=== PATIENT | female | born 1980 | race American Indian/Alaskan Native ===

== ENCOUNTER 2016-07-18 01:33 | Inpatient (IN) | payer MEDICAID ==
[2016-07-18 01:56] VITALS: BMI 40.4
--- NOTE | 2016-07-18 02:14 | ED PDOC ---
Arrival/HPI - General Chief Complaint: GI Problem Time Seen by Provider: 07/18/16 02:09 Historian: Patient - History of Present Illness Narrative History of Present Illness (Text): 07/18/16 02:14 Micky Forbes is a 36 year old female, whose past medical history includes gastritis, who presents to the Emergency department complaining of diffuse abdominal pain since 21:00. Patient reports associated nausea. Patient denies any fever, chills, chest pain, shortness of breath, vomiting, diarrhea, urinary symptoms, back pain, neck pain, headache, dizziness, or any other complaints. Time/Duration: 1-3 hours (21:00) Symptom Onset: Gradual Symptom Course: Unchanged Activities at Onset: Rest, Light Context: Home Past Medical History - Provider Review Nursing Documentation Reviewed: Yes - Infectious Disease Hx of Infectious Diseases: None - Tetanus Immunization Tetanus Immunization: Unknown - Psychiatric Hx Substance Use: No - Past Surgical History Past Surgical History: No Previous - Anesthesia Hx Anesthesia: No - Suicidal Assessment Feels Threatened In Home Enviroment: No Family/Social History - Physician Review Nursing Documentation Reviewed: Yes Family/Social History: No Known Family HX Smoking Status: Never Smoked Hx Alcohol Use: No Hx Substance Use: No Hx Substance Use Treatment: No Allergies/Home Meds Allergies/Adverse Reactions: Allergies Penicillins Allergy (Verified 07/18/16 01:56) RASH Review of Systems - Physician Review All systems were reviewed & negative as marked: Yes - Review of Systems Constitutional: Normal. absent: Fevers Eyes: Normal ENT: Normal Respiratory: Normal. absent: SOB, Cough Cardiovascular: Normal. absent: Chest Pain Gastrointestinal: Abdominal Pain, Nausea. absent: Diarrhea, Vomiting Genitourinary Female: Normal. absent: Dysuria, Frequency, Hematuria, Urine Output Changes Musculoskeletal: Normal. absent: Back Pain, Neck Pain Skin: Normal. absent: Rash Neurological: Normal. absent: Headache, Dizziness Endocrine: Normal Hemo/Lymphatic: Normal Psychiatric: Normal Physical Exam Vital Signs Reviewed: Yes Vital Signs Temp Pulse Resp BP Pulse Ox 07/18/16 04:52 83 18 109/68 97 07/18/16 01:59 98.1 F 90 18 128/86 97 Temperature: Afebrile Blood Pressure: Normal Pulse: Regular Respiratory Rate: Normal Appearance: Positive for: Well-Appearing, Non-Toxic, Comfortable Pain Distress: None Mental Status: Positive for: Alert and Oriented X 3 - Systems Exam Head: Present: Atraumatic, Normocephalic Pupils: Present: PERRL Extroacular Muscles: Present: EOMI Conjunctiva: Present: Normal Mouth: Present: Moist Mucous Membranes Neck: Present: Normal Range of Motion Respiratory/Chest: Present: Clear to Auscultation, Good Air Exchange. No: Respiratory Distress, Accessory Muscle Use Cardiovascular: Present: Regular Rate and Rhythm, Normal S1, S2. No: Murmurs Abdomen: Present: Normal Bowel Sounds. No: Tenderness, Distention, Peritoneal Signs Back: Present: Normal Inspection Upper Extremity: Present: Normal Inspection. No: Cyanosis, Edema Lower Extremity: Present: Normal Inspection. No: Edema Neurological: Present: GCS=15, CN II-XII Intact, Speech Normal Skin: Present: Warm, Dry, Normal Color. No: Rashes Psychiatric: Present: Alert, Oriented x 3, Normal Insight, Normal Concentration Medical Decision Making ED Course and Treatment: 07/18/16 02:14 Impression: 36 year old female complaining of abdominal pain and nausea since 21:00. Plan: -- Labs, lipase -- Urinalysis -- IV fluids -- Zofran -- Protonix -- Toradol -- IV fluids -- Reassess and disposition Progress Notes: 07/18/16 03:43 Reviewed labs, WBC: 19.3. Will order CT Abdomen and Pelvis. 07/18/16 05:44 Reviewed radiology, CT Abdomen and Pelvis shows: 1. Acute appendicitis. 2. Incidental/non-acute findings are described above. Cipro and Flagyl ordered. Paged surgeon and director medical surgical credit and collections analyst. 07/18/16 05:48 Case discussed with director medical surgical credit and collections analyst, who is aware and agrees with plan. 07/18/16 05:[address] Yudelka Sweeney, surgeon, who is aware and agrees with plan. Accepts pt in to her service. Pt will be [facility] for appendicitis. Pt is no acute distress. Discussed results and hospital admission with pt, who is aware and verbalizes understanding. - Lab Interpretations Lab Results: 07/18/16 03:00 07/18/16 03:42 Lab Results 07/18/16 03:45: Urine Color Yellow, Urine Appearance Clear, Urine pH 8.0, Ur Specific [place] 1.010, Urine Protein Negative, Urine Glucose (UA) Negative, Urine Ketones Negative, Urine Blood Negative, Urine Nitrate Negative, Urine Bilirubin Negative, Urine Urobilinogen 0.2, Ur Leukocyte Esterase Negative, Urine HCG, Qual Negative 07/18/16 03:42: Sodium 137, Potassium 3.8, Chloride 104, Carbon Dioxide 24, Anion Gap 13, BUN 8, Creatinine 0.5, Est GFR ( Amer) > 60, Est GFR (Non- Af Amer) > 60, Random Glucose 119 H, Calcium 8.9, Total Bilirubin 0.5, AST 19, ALT 24, Alkaline Phosphatase 73, Total Protein 7.7, Albumin 3.9, Globulin 3.8, Albumin/Globulin Ratio 1.0 L, Lipase 49 07/18/16 03:00: WBC 19.3 H, RBC 4.65, Hgb 11.9 L, Hct 36.8, MCV 79.1 L, MCH 25.6 , MCHC 32.3, RDW 15.6 H, Plt Count 370, MPV 10.5, Gran % 85.2 H, Lymph % (Auto) 11.0 L, [place] % (Auto) 3.5, Eos % (Auto) 0.2 L, Baso % (Auto) 0.1, Gran # 16.42 H , Lymph # 2.1, [place] # 0.7 H, Eos # 0.0, Baso # 0.02 I have reviewed the lab results: Yes - RAD Interpretation Narrative RAD Interpretations (Text): CT Abdomen and Pelvis shows: Limitations: Lack of intravenous contrast. Lower thorax: Minimal atelectasis. ABDOMEN: Liver: Unremarkable. Gallbladder and bile ducts: No calcified stones. No ductal dilation. Pancreas: Unremarkable. No ductal dilation. Spleen: No splenomegaly. Adrenals: No mass. Kidneys and ureters: No renal calculi. No hydronephrosis. Stomach and bowel: Underdistention of LEFT colon. No definite mural thickening. No obstruction. Appendix: Enlarged appendix, measuring up to 1.1 cm in diameter. Minimal stranding about appendix. PELVIS: Bladder: Unremarkable. No stones. Reproductive: Unremarkable as visualized. ABDOMEN and PELVIS: Intraperitoneal space: Trace free fluid within pelvis. No free air. Bones/joints: No acute fracture. Soft tissues: Tiny umbilical hernia containing fat. Vasculature: Unremarkable. No abdominal aortic aneurysm. Lymph nodes: Few subcentimeter short axis mesenteric lymph nodes, nonspecific. IMPRESSION: 1. Acute appendicitis. 2. Incidental/non-acute findings are described above. Radiology Orders: 07/18/16 03:45 ABD & PELVIS W/O PO OR IV CONT [CT] Stat Registrar Assistant: Radiologist - Medication Orders Current Medication Orders: Discontinued Medications Bupivacaine HCl (Marcaine 0.5%) Confirm Administered Dose 30 ml .ROUTE .STK-MED ONE Stop: 07/18/16 15:33 Fentanyl (Fentanyl) Confirm Administered Dose 100 mcg .ROUTE .STK-MED ONE Stop: 07/18/16 19:37 Glycopyrrolate (Robinul) Confirm Administered Dose 0.2 mg .ROUTE .STK-MED ONE Stop: 07/18/16 19:38 Glycopyrrolate (Robinul) Confirm Administered Dose 0.4 mg .ROUTE .STK-MED ONE Stop: 07/18/16 19:38 Home Med (*Refrigerator Open) Confirm Administered Dose 1 unit XX .STK-MED ONE Stop: 07/18/16 15:33 Sodium Chloride (Sodium Chloride 0.9%) 1,000 mls @ 100 mls/hr IV .Q10H STA Stop: 07/18/16 12:19 Last Admin: 07/18/16 03:07 Dose: 100 mls/hr Ciprofloxacin (Cipro 400mg/200ml Dsw) 400 mg in 200 mls @ 133.3 mls/hr IVPB STAT STA PRN Reason: Protocol Stop: 07/18/16 07:18 Metronidazole (Flagyl) 500 mg in 100 mls @ 100 mls/hr IVPB STAT STA PRN Reason: Protocol Stop: 07/18/16 06:46 Last Admin: 07/18/16 06:32 Dose: 100 mls/hr Ciprofloxacin (Cipro 400mg/200ml Dsw) 400 mg in 200 mls @ 133.3 mls/hr IVPB Q12 AMEE PRN Reason: Protocol Stop: 07/18/16 11:31 Last Admin: 07/18/16 09:06 Dose: 133.3 mls/hr Metronidazole (Flagyl) 500 mg in 100 mls @ 100 mls/hr IVPB Q8 AMEE PRN Reason: Protocol Last Admin: 07/19/16 05:01 Dose: 100 mls/hr Lactated Ringer's (Lactated Ringer's) 1,000 mls @ 125 mls/hr IV .Q8H [facility] Last Admin: 07/18/16 22:55 Dose: 125 mls/hr Lactated Ringer's (Lactated Ringer's) 1,000 mls @ 75 mls/hr IV .[id number] [facility] Stop: 07/18/16 21:30 Last Admin: 07/18/16 23:34 Dose: Ketorolac Tromethamine (Toradol) 30 mg IVP ONCE ONE Stop: 07/18/16 02:23 Last Admin: 07/18/16 03:46 Dose: 30 mg Lidocaine (Lidocaine (Bolus)) Confirm Administered Dose 100 mg IV .STK-MED ONE Stop: 07/18/16 19:39 Metoclopramide HCl (Reglan) Confirm Administered Dose 10 mg .ROUTE .STK-MED ONE Stop: 07/18/16 19:39 Metoclopramide HCl (Reglan) 10 mg IV ONCE PRN PRN Reason: Nausea/Vomiting Midazolam HCl (Versed Inj) Confirm Administered Dose 2 mg .ROUTE .STK-MED ONE Stop: 07/18/16 19:38 Morphine Sulfate (Morphine) 4 mg IVP Q4H PRN PRN Reason: Pain, moderate (4-7) Last Admin: 07/19/16 08:58 Dose: 4 mg Morphine Sulfate (Morphine) 2 mg IVP Q15M PRN PRN Reason: Pain, moderate (4-7) Stop: 07/18/16 22:00 Morphine Sulfate (Morphine) Confirm Administered Dose 2 mg .ROUTE .STK-MED ONE Stop: 07/18/16 21:55 Morphine Sulfate (Morphine) Confirm Administered Dose 2 mg .ROUTE .STK-MED ONE Stop: 07/18/16 22:03 Morphine Sulfate (Morphine) 2 mg IVP .STK-MED ONE Stop: 07/18/16 21:46 Last Admin: 07/18/16 21:45 Dose: 2 mg Re-Assess: MARICARMEN Pain Assessment Document 07/18/16 22:45 (Rec: 07/18/16 23:34 [id number]) Pain Reassessment Is this a pain reassessment? Yes Presence of Pain Presence of Pain Yes Morphine Sulfate (Morphine) 2 mg IVP .STK-MED ONE Stop: 07/18/16 22:01 Last Admin: 07/18/16 22:00 Dose: 2 mg Re-Assess: BANNER Pain Assessment Document 07/18/16 23:00 (Rec: 07/18/16 23:32 [id number]) Pain Reassessment Is this a pain reassessment? Yes Sleep Is patient sleeping during reassessment? No Presence of Pain Presence of Pain Yes Morphine Sulfate (Morphine) Confirm Administered Dose 2 mg .ROUTE .STK-MED ONE Stop: 07/18/16 22:24 Morphine Sulfate (Morphine) 2 mg IVP .STK-MED ONE Stop: 07/18/16 22:16 Last Admin: 07/18/16 22:15 Dose: 2 mg Re-Assess: BANNER Pain Assessment Document 07/18/16 23:15 (Rec: 07/18/16 23:32 [id number]) Pain Reassessment Is this a pain reassessment? Yes Presence of Pain Presence of Pain No Morphine Sulfate (Morphine) Confirm Administered Dose 2 mg .ROUTE .STK-MED ONE Stop: 07/18/16 22:38 Morphine Sulfate (Morphine) 2 mg IVP .STK-MED ONE Stop: 07/18/16 22:46 Last Admin: 07/18/16 22:45 Dose: 2 mg Re-Assess: BANNER Pain Assessment Document 07/18/16 23:45 (Rec: 07/19/16 02:52 [id number]) Pain Reassessment Is this a pain reassessment? Yes Sleep Is patient sleeping during reassessment? No Presence of Pain Presence of Pain Yes Neostigmine Methylsulfate (Neostigmine Methylsulfate) Confirm Administered Dose 6 mg IV .STK-MED ONE Stop: 07/18/16 19:39 Ondansetron HCl (Zofran Inj) 4 mg IVP STAT STA Stop: 07/18/16 02:21 Last Admin: 07/18/16 03:47 Dose: 4 mg Ondansetron HCl (Zofran Inj) Confirm Administered Dose 8 mg .ROUTE .STK-MED ONE Stop: 07/18/16 19:39 Ondansetron HCl (Zofran Inj) 4 mg IVP ONCE PRN PRN Reason: Nausea/Vomiting Stop: 07/18/16 23:59 Oxycodone/Acetaminophen (Percocet 5/325 Mg Tab) 1 tab PO Q4H PRN PRN Reason: Pain, Mild (1-3) Stop: 07/21/16 21:29 Last Admin: 07/19/16 01:48 Dose: 1 tab Re-Assess: MARICARMEN Pain Assessment Document 07/19/16 02:48 FC (Rec: 07/19/16 02:52 FC [id number]) Pain Reassessment Is this a pain reassessment? Yes Presence of Pain Presence of Pain No Pantoprazole Sodium (Protonix Inj) 40 mg IVP STAT STA Stop: 07/18/16 02:21 Last Admin: 07/18/16 03:47 Dose: 40 mg Propofol (Diprivan) Confirm Administered Dose 400 mg .ROUTE .STK-MED ONE Stop: 07/18/16 19:36 Rocuronium [place] (Zemuron) Confirm Administered Dose 50 mg .ROUTE .STK-MED ONE Stop: 07/18/16 19:41 Succinylcholine Chloride (Quelicin) Confirm Administered Dose 200 mg IV .STK- MED ONE Stop: 07/18/16 19:41 - Scribe Statement The provider has reviewed the documentation as recorded by the Scribtenzin Schulz All medical record entries made by the Scribtenzin were at my direction and personally dictated by me. I have reviewed the chart and agree that the record accurately reflects my personal performance of the history, physical exam, medical decision making, and the department course for this patient. I have also personally directed, reviewed, and agree with the discharge instructions and disposition. Disposition/Present on Arrival - Present on Arrival Any Indicators Present on Arrival: No History of DVT/PE: No History of Uncontrolled Diabetes: No Urinary Catheter: No History of Decub. Ulcer: No History Surgical Site Infection Following: None - Disposition Have Diagnosis and Disposition been Completed?: Yes Diagnosis: Appendicitis Disposition: HOSPITALIZED Disposition Time: 05:50 Condition: GOOD
[2016-07-18] MEDS ORDERED: Sodium Chloride 0.9% 1,000 ML IV STA (02:20)
[2016-07-18 03:08] LABS: ADD MANUAL DIFF? NO
[2016-07-18 03:10] LABS: BASO # 0.02 K/mm3 (0.0-2.0); BASO % 0.1 % (0.0-3.0); EOS % 0.2 % (1.5-5.0); GRAN # 16.42 (1.4-6.5); GRAN % 85.2 % (50.0-68.0); HEMATOCRIT 36.8 % (36.0-48.0); LYMPH # 2.1 (1.2-3.4); MEAN CELL VOLUME 79.1 fL (80.0-105.0); MEAN CORPUSCULAR HEMOGLOBIN 25.6 pg (25.0-35.0); MEAN CORPUSCULAR HGB CONC 32.3 g/dl (31.0-37.0); MEAN PLATELET VOLUME 10.5 fl (7.0-11.0); MONO # 0.7 (0.1-0.6); MONO % 3.5 % (1.0-6.0); PLATELET COUNT 370 10^3/uL (120.0-450.0); RED CELL DISTRIBUTION WIDTH 15.6 % (11.5-14.5); WHITE BLOOD COUNT 19.3 10^3/ul (4.5-11.0)
[2016-07-18 04:00] LABS: ALKALINE PHOSPHATASE 73 U/L (38-133); ALT/SGPT 24 U/L (7-56); AST/SGOT 19 U/L (15-39); BILIRUBIN,TOTAL 0.5 mg/dL (0.2-1.3); BLOOD UREA NITROGEN 8 mg/dL (7-21); CALCIUM 8.9 mg/dL (8.4-10.5); CARBON DIOXIDE 24 mmol/L (21-33); CHLORIDE 104 mmol/L (98-107); GFR AFRICAN-AMERICAN > 60; GLUCOSE,RANDOM 119 mg/dL (70-110); LIPASE 49 U/L (23-300); POTASSIUM 3.8 mmol/L (3.6-5.0); SODIUM 137 mmol/L (132-148); TOTAL PROTEIN 7.7 g/dL (5.8-8.3)
[2016-07-18 04:04] LABS: URINE BILIRUBIN NEGATIVE (NEGATIVE); URINE BLOOD NEGATIVE (NEGATIVE); URINE GLUCOSE (UA) NEGATIVE (NEGATIVE); URINE KETONE NEGATIVE (NEGATIVE); URINE LEUKOCYTE ESTERASE NEGATIVE Leu/uL (NEGATIVE); URINE PROTEIN NEGATIVE mg/dL (<30 mg/dL); URINE UROBILINOGEN 0.2 E.U./dL (<1 E.U./dL)
[2016-07-18 04:05] LABS: URINE APPEARANCE CLEAR (CLEAR); URINE COLOR YELLOW (YELLOW)
--- NOTE | 2016-07-18 05:41 | CT ---
EXAM: CT Abdomen and Pelvis Without Intravenous Contrast CLINICAL HISTORY: 36 years old, female; Pain; Abdominal pain; Generalized; Additional info: Abd pain TECHNIQUE: Axial computed tomography images of the abdomen and pelvis without intravenous contrast. This CT exam was performed using one or more of the following dose reduction techniques: automated exposure control, adjustment of the mA and/or kV according to patient size, and/or use of iterative reconstruction technique. Coronal and sagittal reformatted images were created and reviewed. COMPARISON: No relevant prior studies available. FINDINGS: Limitations: Lack of intravenous contrast. Lower thorax: Minimal atelectasis. ABDOMEN: Liver: Unremarkable. Gallbladder and bile ducts: No calcified stones. No ductal dilation. Pancreas: Unremarkable. No ductal dilation. Spleen: No splenomegaly. Adrenals: No mass. Kidneys and ureters: No renal calculi. No hydronephrosis. Stomach and bowel: Underdistention of LEFT colon. No definite mural thickening. No obstruction. Appendix: Enlarged appendix, measuring up to 1.1 cm in diameter. Minimal stranding about appendix. PELVIS: Bladder: Unremarkable. No stones. Reproductive: Unremarkable as visualized. ABDOMEN and PELVIS: Intraperitoneal space: Trace free fluid within pelvis. No free air. Bones/joints: No acute fracture. Soft tissues: Tiny umbilical hernia containing fat. Vasculature: Unremarkable. No abdominal aortic aneurysm. Lymph nodes: Few subcentimeter short axis mesenteric lymph nodes, nonspecific. IMPRESSION: 1. Acute appendicitis. 2. Incidental/non-acute findings are described above.
[2016-07-18] MEDS ORDERED: metroNIDAZOLE IV 500 mg/100 ml 500 MG/100 ML BAG IVPB STA (05:47)
[2016-07-18] MEDS ORDERED: Ciprofloxacin 400mg/200ml D5W 400 MG/200 ML BAG IVPB STA (05:48)
[2016-07-18] MEDS: Lactated Ringer's 1,000 ML IV SCH ×3 (08:49→22:55)
--- NOTE | 2016-07-18 09:08 | CP.PCM.HP ---
History of Present Illness - History of Present Illness History of Present Illness: cc: abdominal pain HPI: Patient is a 36yo female with no significant past medical history that presented c/o diffuse abdominal pain associated with nausea for the past several hours. Patient reported that she had similar episodes in the past that she reports was due to gastritis, however she admits never being evaluated by a grizzlyman. Patient states that the pain came on suddenly without any inciting events and that nothing appeared to make it better or worse. She reported that the pain was severe, sharp and did not localize to any particular region in her abdomen. In the ED, patient reported that her abdominal pain improved post pain medication administration as well as feeling hungry and willing to eat. She admitted to nausea, however denied fever, chills, vomiting, hematochezia, melena, hematemesis, chest pain, palpitations, SOB. 12 point ROS as per HPI above, otherwise negative PMHx: gastritis PSHx: denies Allergies: Penicillin Family Hx: Mother: choriocarcinoma over 30 yrs ago treated with chemotherapy Social Hx: Denies tobacco and tobacco use; social alcohol use Present on Admission - Present on Admission Any Indicators Present on Admission: No Past Patient History - Infectious Disease Hx of Infectious Diseases: None - Tetanus Immunizations Tetanus Immunization: Unknown - Past Social History Smoking Status: Never Smoked - PSYCHIATRIC Hx Substance Use: No - ANESTHESIA Hx Anesthesia: No Meds Allergies/Adverse Reactions: Allergies Allergy/AdvReac Type Severity Reaction Status Date / Time Penicillins Allergy RASH Verified 07/18/16 01:56 Physical Exam - Constitutional Appears: Well, Non-toxic, No Acute Distress - Head Exam Head Exam: ATRAUMATIC, NORMAL INSPECTION, NORMOCEPHALIC - Eye Exam Eye Exam: EOMI, PERRL - ENT Exam ENT Exam: Mucous Membranes Moist - Neck Exam Neck exam: Positive for: Normal Inspection - Respiratory Exam Respiratory Exam: Clear to Auscultation Bilateral. absent: Rales, Rhonchi, Wheezes - Cardiovascular Exam Cardiovascular Exam: RRR, +S1, +S2. absent: Diastolic murmur, Gallop, JVD, Rubs , Systolic Murmur - GI/Abdominal Exam GI & Abdominal Exam: Distended, Soft, Tenderness (mild RLQ tenderness). absent : Firm, Guarding, Rebound, Rigid - Extremities Exam Extremities exam: Positive for: normal inspection. Negative for: pedal edema - Neurological Exam Neurological exam: Alert, Oriented x3 - Psychiatric Exam Psychiatric exam: Normal Affect, Normal Mood - Skin Skin Exam: Dry, Intact, Normal Color, Warm Results - Vital Signs Recent Vital Signs: Last Vital Signs Temp 98.1 F 07/18/16 01:59 Pulse 83 07/18/16 04:52 Resp 18 07/18/16 04:52 BP 109/68 07/18/16 04:52 Pulse Ox 97 07/18/16 04:52 - Labs Result Diagrams: 07/18/16 03:00 07/18/16 03:42 Assessment & Plan - Assessment and Plan (Free Text) Plan: 1. Acute appendicitis -afebrile, however leukocytosis of 19.3 -CT abd/pelvis revealed acute appendicitis -IVF hydration -Continue abx -Pt scheduled for appendectomy Case discussed with attending, Dr. Sweeney - Date & Time Date: 07/18/16 Time: 09:09
[2016-07-18] MEDS ORDERED: Ciprofloxacin 400mg/200ml D5W 400 MG/200 ML BAG IVPB SCH (10:00)
[2016-07-18] MEDS: metroNIDAZOLE IV 500 mg/100 ml 500 MG/100 ML BAG IVPB SCH ×2 (14:25→22:55)
[2016-07-18] MEDS ORDERED: Bupivacaine 0.5% Inj(30mL) ONE (15:32)
[2016-07-18] MEDS: Morphine 4 mg/ml ISec IVP PRN ×2 (16:59→22:55)
[2016-07-18] MEDS ORDERED: Lactated Ringer's 1,000 ML IV SCH (19:29)
[2016-07-18] MEDS ORDERED: Morphine 2 mg/ml ISec IVP PRN (19:29)
[2016-07-18] MEDS ORDERED: Propofol 10 mg/ml Inj (20 ML) ONE (19:35)
[2016-07-18] MEDS ORDERED: Glycopyrrolate 0.2 mg/ml (2ml vial) ONE (19:37)
[2016-07-18] MEDS ORDERED: Midazolam 2 MG/2 ML VIAL ONE (19:37)
[2016-07-18] MEDS ORDERED: Neostigmine Methylsulfate 3mg/3ml Syringe IV ONE (19:38)
[2016-07-18] MEDS ORDERED: Succinylcholine 200 mg/10 ml Inj IV ONE (19:40)
[2016-07-18] MEDS ORDERED: Rocuronium 10 mg/ml (5 ml) ONE (19:40)
[2016-07-18] MEDS ORDERED: Oxycodone/Acetaminophen 5/325 mg Tab PO PRN (21:28)
--- NOTE | 2016-07-18 21:31 | PCM.SURG1 ---
Surgeon's Initial Post Op Note - Surgeon's Notes Surgeon: Dr Sweeney Waiter/Waitress Take Out: Dr Silverio PGY2 Type of Anesthesia: General Endo Pre-Operative Diagnosis: acute appendicitis Operative Findings: see report Post-Operative Diagnosis: acute appendicitis Operation Performed: laparoscopic appendectomy Specimen/Specimens Removed: appendix Estimated Blood Loss: EBL {In ML}: 5 Blood Products Given: N/A Drains Used: No Drains Post-Op Condition: Good Date of Surgery/Procedure: 07/18/16 Time of Surgery/Procedure: 21:31
[2016-07-18] MEDS ORDERED: Morphine 2 mg/ml ISec IVP ONE ×4 (21:45→22:45)
[2016-07-18] MEDS ORDERED: Morphine 2 mg/ml ISec ONE ×4 (21:54→22:37)
[2016-07-19] MEDS: Morphine 4 mg/ml ISec IVP PRN ×2 (05:00→08:58)
[2016-07-19] MEDS: metroNIDAZOLE IV 500 mg/100 ml 500 MG/100 ML BAG IVPB SCH (05:01)
[2016-07-19 07:05] LABS: ADD MANUAL DIFF? NO
[2016-07-19 07:20] LABS: BASO # 0.02 K/mm3 (0.0-2.0); BASO % 0.1 % (0.0-3.0); EOS % 0.1 % (1.5-5.0); GRAN # 10.52 (1.4-6.5); GRAN % 78.4 % (50.0-68.0); HEMATOCRIT 33.9 % (36.0-48.0); LYMPH # 2.3 (1.2-3.4); LYMPH % 17.1 % (22.0-35.0); MEAN CELL VOLUME 79.4 fL (80.0-105.0); MEAN CORPUSCULAR HEMOGLOBIN 25.3 pg (25.0-35.0); MEAN CORPUSCULAR HGB CONC 31.9 g/dl (31.0-37.0); MEAN PLATELET VOLUME 10.1 fl (7.0-11.0); MONO # 0.6 (0.1-0.6); MONO % 4.3 % (1.0-6.0); PLATELET COUNT 285 10^3/uL (120.0-450.0); RED CELL DISTRIBUTION WIDTH 15.3 % (11.5-14.5); WHITE BLOOD COUNT 13.4 10^3/ul (4.5-11.0)
[2016-07-19 08:04] VITALS: BP 114/69; PULSE 89; RESP 18; TEMP 98.8; O2SAT 97
--- NOTE | 2016-07-19 08:57 | CP.PCM.DIS ---
Provider - Provider Date of Admission: 07/18/16 05:53 Attending physician: Dandre Sweeney MD Primary care physician: Laura Metcalf MD Time Spent in preparation of Discharge (in minutes): 5 Diagnosis - Discharge Diagnosis (1) Acute appendicitis Status: Resolved Priority: High Hospital Course - Lab Results Lab Results: Most Recent Lab Values WBC 13.4 10^3/ul (4.5-11.0) H D 07/19/16 06:45 RBC 4.27 10^6/uL (3.5-6.1) 07/19/16 06:45 Hgb 10.8 gm/dL (12.0-16.0) L 07/19/16 06:45 Hct 33.9 % (36.0-48.0) L 07/19/16 06:45 MCV 79.4 fL (80.0-105.0) L 07/19/16 06:45 MCH 25.3 pg (25.0-35.0) 07/19/16 06:45 MCHC 31.9 g/dl (31.0-37.0) 07/19/16 06:45 RDW 15.3 % (11.5-14.5) H 07/19/16 06:45 Plt Count 285 10^3/uL (120.0-450.0) 07/19/16 06:45 MPV 10.1 fl (7.0-11.0) 07/19/16 06:45 Gran % 78.4 % (50.0-68.0) H 07/19/16 06:45 Lymph % (Auto) 17.1 % (22.0-35.0) L 07/19/16 06:45 [place] % (Auto) 4.3 % (1.0-6.0) 07/19/16 06:45 Eos % (Auto) 0.1 % (1.5-5.0) L 07/19/16 06:45 Baso % (Auto) 0.1 % (0.0-3.0) 07/19/16 06:45 Gran # 10.52 (1.4-6.5) H 07/19/16 06:45 Lymph # 2.3 (1.2-3.4) 07/19/16 06:45 [place] # 0.6 (0.1-0.6) 07/19/16 06:45 Eos # 0.0 (0.0-0.7) 07/19/16 06:45 Baso # 0.02 K/mm3 (0.0-2.0) 07/19/16 06:45 Sodium 137 mmol/L (132-148) 07/18/16 03:42 Potassium 3.8 mmol/L (3.6-5.0) 07/18/16 03:42 Chloride 104 mmol/L (98-107) 07/18/16 03:42 Carbon Dioxide 24 mmol/L (21-33) 07/18/16 03:42 Anion Gap 13 (10-20) 07/18/16 03:42 BUN 8 mg/dL (7-21) 07/18/16 03:42 Creatinine 0.5 mg/dL (0.5-1.4) 07/18/16 03:42 Est GFR ( Amer) > 60 07/18/16 03:42 Est GFR (Non-Af Amer) > 60 07/18/16 03:42 Random Glucose 119 mg/dL (70-110) H 07/18/16 03:42 Calcium 8.9 mg/dL (8.4-10.5) 07/18/16 03:42 Total Bilirubin 0.5 mg/dL (0.2-1.3) 07/18/16 03:42 AST 19 U/L (15-39) 07/18/16 03:42 ALT 24 U/L (7-56) 07/18/16 03:42 Alkaline Phosphatase 73 U/L (38-133) 07/18/16 03:42 Total Protein 7.7 g/dL (5.8-8.3) 07/18/16 03:42 Albumin 3.9 g/dL (3.0-4.8) 07/18/16 03:42 Globulin 3.8 gm/dL 07/18/16 03:42 Albumin/Globulin Ratio 1.0 (1.1-1.8) L 07/18/16 03:42 Lipase 49 U/L (23-300) 07/18/16 03:42 Urine Color Yellow (YELLOW) 07/18/16 03:45 Urine Appearance Clear (CLEAR) 07/18/16 03:45 Urine pH 8.0 (4.7-8.0) 07/18/16 03:45 Ur Specific [place] 1.010 (1.005-1.035) 07/18/16 03:45 Urine Protein Negative mg/dL (<30 mg/dL) 07/18/16 03:45 Urine Glucose (UA) Negative mg/dL (NEGATIVE) 07/18/16 03:45 Urine Ketones Negative mg/dL (NEGATIVE) 07/18/16 03:45 Urine Blood Negative (NEGATIVE) 07/18/16 03:45 Urine Nitrate Negative (NEGATIVE) 07/18/16 03:45 Urine Bilirubin Negative (NEGATIVE) 07/18/16 03:45 Urine Urobilinogen 0.2 E.U./dL (<1 E.U./dL) 07/18/16 03:45 Ur Leukocyte Esterase Negative [place]/uL (NEGATIVE) 07/18/16 03:45 Urine HCG, Qual Negative (NEGATIVE) 07/18/16 03:45 - Hospital Course Hospital Course: 36F with PMHx of gastritis who [place] [facility] [place] pain x [address] abdomen/pelvis was obtained and showed acute appendicitis. Pt was admitted to the hospital and started on IV ABX and pain meds. She was taken to the OR for lap appendectomy. Pt is POD#1 today and doing well. Tolerating diet, ambulating and urinating w/o difficulty. Pt will be DC home with PO pain meds. f /u with Dr. Sweeney in 1 week. Discharge Exam - Head Exam Head Exam: ATRAUMATIC, NORMOCEPHALIC - Eye Exam Eye Exam: Normal appearance - ENT Exam ENT Exam: Mucous Membranes Moist - Respiratory Exam Respiratory Exam: NORMAL BREATHING PATTERN - Cardiovascular Exam Cardiovascular Exam: RRR - GI/Abdominal Exam GI & Abdominal Exam: Soft. absent: Guarding, Rebound, Tenderness - Extremities Exam Extremities exam: full ROM, pedal pulses present - Neurological Exam Neurological exam: Alert, Oriented x3 - Skin Skin Exam: Dry, Intact, Warm Discharge Plan - Follow Up Plan Condition: GOOD Disposition: HOME/ ROUTINE Referrals: Laura Metcalf MD [Primary Care Provider] -
--- NOTE | 2016-07-19 12:03 | OP ---
PROCEDURE DATE: 07/18/2016 SURGEON: Dr. Sweeney [place]: Dr. Silverio ANESTHESIA: General, Dr. Frey PREOPERATIVE DIAGNOSIS: Acute appendicitis. POSTOPERATIVE DIAGNOSIS: Acute appendicitis. PROCEDURE: Laparoscopic appendectomy. DESCRIPTION OF OPERATION: With the patient in the supine position under adequate general anesthesia, the abdomen was prepped and draped in the usual sterile manner. Veress needle puncture was performe d at the umbilicus with insufflation to 15 cm water pressure of CO2 and a 10 mm laparoscopic trocar w as inserted via an infraumbilical incision. Under direct vision, additional trocars were inserted in the left lower quadrant. The cecum was identified and the appendix was visualized. It was noted to be acutely inflamed. The appendix was gently grasped and elevated and the window dissected between the mesoappendix and the appendix. The appendix was divided with an Endo-YASMEEN stapler. The mesentery was then divided with a second pass of the Endo-YASMEEN stapler. Both staple lines were inspected for h emostasis and the appendix was placed in a specimen retrieval bag and removed via the 12 mm port site . The right lower quadrant was again inspected for hemostasis and suctioned. The pneumoperitoneum w as released and the trocars were removed. The umbilical and 12 mm port sites were closed with fascia l sutures of 0 Vicryl. All incisions were closed with 4-0 Monocryl subcuticular sutures and glue. D ry sterile dressings were applied. The patient tolerated the procedure well and transferred to the ecovery room in stable condition. Estimated blood loss for the procedure was 5 mL. Dandre Sweeney MD cc: 58 TT: 07/19/2016 12:02:51 sn
== END 2016-07-19 14:03 | disposition home or self-care (01) | DRG 883 ==
LOC: ED 01:33 → ERH 05:53 → 3RNO 07:37
PROVIDERS: ADMIT Specialist; ATTEND Specialist
PROC: 0DTJ4ZZ Resection of Appendix, Percutaneous Endoscopic Approach (ICD-10-PCS; principal; 2016-07-18 16:15)
DX: K35.80 Unspecified acute appendicitis (principal); K29.70 Gastritis, unspecified, without bleeding